=== PATIENT | female | born 1990 | race Hispanic/Latino ===

== ENCOUNTER 2020-09-27 07:51 | Inpatient (IN) | payer OTHER ==
[~2020-09-27] VITALS: Ht 152.4 cm; Wt 72.6 kg
[2020-09-27] VITALS (45 sets, daily range): BP systolic 86–122; BP diastolic 50–72
[2020-09-27] MEDS ORDERED: PRENTAB9 PO (08:07)
[2020-09-27] MEDS ORDERED: LR 1,000 ML IV SCH (08:33)
[2020-09-27] MEDS ORDERED: LACTATED RINGER'S 1000 ML IV STA (08:33)
--- NOTE | 2020-09-27 08:51 | HPEPDOC ---
Obstetrical History & Physical General Date of Admission 09/27/2020 History of Present Illness 29 yo at 40w3d with ARACELIS of 24 SEP 2020 presents to L&D with complaints of leaking of clear fluid since 0600 this morning with painful contractions. She denies vaginal bleeding and reports positive movement. Chief Complaint: LOF, term Information Provided By: Patient Age: 29 : 1 Term: 0 Pre-term: 0 Abortions: 0 Livin Care Care: Good Care Dating Final EDC: Sep 24, 2020 Final EDC for Daily Update: Sep 24, 2020 Final EDC by: 2nd trimester (US) LMP: Dec 19, 2019 Weeks + Days: 14 (+4) Estimated Date of Confinement: Sep 24, 2020 EGA at Admission: 40 (+3) Antepartum Course Height (inches): 60 Pre- weight (lbs.): 126 Admission Weight (lbs.): 157 Change in Weight (lbs.): 31 Past Medical History Past Obstetrical History : Past Obstetrical History: Primgravida G[employer] History: No pertinent history Past Medical History Medical History Denies Surgical History: Appendectomy Family History Significant Family History: No pertinent family hx Social History Marital Status: Family situation: Spouse/partner home Psychosocial History: No pertinent psych hx * Smoker: non-smoker Alcohol: Denies Drugs: denies Abuse Violence Screening Have you been hit/kicked/slapp: No Have you been sexually assault: No Imunizations Tdap status: current Allergies Coded Allergies: No Known Drug Allergies (Verified Allergy, Unknown, 09/27/20) Medications Scheduled No.137/Iron/Folic Acd ( Vitamin Tablet) 1 Each Tablet, 1 TAB PO DAILY Physical Examination Physical Examination GENERAL: Alert and oriented times three. BREAST: . ABDOMEN: Gravid and non-tender to touch. FETUS: Is vertex (VTX) by sterile vaginal examination (SVE), and fetus is vertex (VTX) by Awais. HEART RATE: Regular rate and rhythm. LUNGS: Clear to auscultation (CTA). EXTREMITIES: No edema. No clonus. Deep tendon reflexes (DTRs) + 2. Vital Signs/I&O Vital Signs Date Time Temp Pulse Resp B/P (MAP) Pulse Ox O2 Delivery O2 Flow Rate FiO2 09/27/20 08:17 99.3 91 20 111/65 (80) Sterile speculum exam with clear fluid pooling in the vaginal vault and leaking from the cervix with Valsalva. Laboratory Data Urine Culture: No Growth Pertinent Laboratoy Data Blood Type: O+ RBC Antibody Screen: Negative HIV: Negative Hepatitis B: Negative Rapid Plasma Reagin: Nonreactive Rubella: Immune Varicella: Immune Chlamydia/Gonorrhea: Negative Group B Streptococcus: Negative Cystic Fibrosis: Negative Glucose Tolerance Test: 134 Anatomy Ultrasound Ultrasound Date: Jun 19, 2020 Placenta Location: Anterior Normal Anatomy: Yes Placenta Previa: No Estimated Weight (grams): 1295 Steroid Therapy Steroid Therapy: No Vaginal Examination Dilation: 3 cm Effacement: 80% Station: -2 Cervical Consistency: Soft Cervical Position: Middle Presentation: Cephalic presentation Position: Vertex (occiput) Assessment Heart Rate (FHR): 140 Variability: Moderate Accelerations: Present Decelerations: None Tocometer Contractions: Yes Frequency: every 2-5 min. Multi-drug resistant Organism: No history of MDRO Assessment/Plan Assessment 29 yo at 40w3d with ARACELIS of 24 SEP 2020 presents to L&D with complaints of leaking of clear fluid since 0600 this morning with painful contractions. She denies vaginal bleeding and reports positive movement. Plan Admit and orient. Website Admin and consent. Diet: clear liquids. Group B Streptococcus (GBS) negative. Labs and intravenous (IV) per unit protocol. Counseled on Pitocin and induction of labor (IOL). Lactated Ringers (LR): Bolus 1000 mL, then at 125 mL/hr. Anticipate normal spontaneous delivery (). C-S as appropriate. Labor and Delivery Counseling Discussed pain management options, risks of labor, risks of hemorrhage and indications for section. HARRY VALENCIA CNM Sep 27, 2020 08:51
[2020-09-27 09:40] LABS: HEMATOCRIT 39.8 % (36.0-47.0); MEAN CORPUSCULAR HEMOGLOBIN 28.4 pg (27.0-33.0); MEAN CORPUSCULAR HGB CONC 32.7 g/dl (32.0-36.5); MEAN CORPUSCULAR VOLUME 86.9 fl (80.0-96.0); PLATELET COUNT, AUTOMATED 209 10^3/uL (150-450); RED BLOOD COUNT 4.58 10^6/uL (4.00-5.40)
[2020-09-27] MEDS ORDERED: PROMETHAZINE INJ 25 MG/ML VIAL (J2550) IV ONE (12:00)
[2020-09-27] MEDS ORDERED: BUTORPHANOL 2 MG/ML INJ (J0595) IV ONE (12:00)
--- NOTE | 2020-09-27 12:00 | IPNPDOC ---
Obstetrical Progress Note Date of Service Sep 27, 2020 Subjective 29 yo at 40w3d with ARACELIS of 24 SEP 2020 admitted for labor. She is breathing through her contractions. She desires for IV pain medication for pain. She has supportive family at the bedside. Objective Vital Signs Date Time Temp Pulse Resp B/P (MAP) Pulse Ox O2 Delivery O2 Flow Rate FiO2 09/27/20 11:10 98.6 89 22 112/69 (83) Assessment Heart Rate (FHR): 145 Variability: Minimal Accelerations: Present Decelerations: None Tocometer Contractions: Yes Frequency: other (every 3-4 minutes) Sterile Vaginal Examination Dilation: 3 cm Effacement (%): 80% Station: -2 Cervical Consistency: Soft Cervical Position: Middle Postion/Presentation: Cephalic presentation Assessment and Plan Age: 29 : 1 Term: 0 Pre-term: 0 Abortions: 0 Livin EGA at Admission: 40 (+3) Weeks & Days 40w3d Status: Reassuring Group B Streptococcus: Negative Anticipate: Vaginal Delivery Additional Comments Will start pitocin for augmentation and administer Stadol and Phenergan for pain. HARRY VALENCIA CNM Sep 27, 2020 11:55
[2020-09-27] MEDS ORDERED: OXYTOCIN DRIP 30 UNITS in IV 1 EA IV SCH (12:30)
[2020-09-27] MEDS ORDERED: LACTATED RINGER'S 1000 ML IV ONE (16:30)
[2020-09-27] MEDS ORDERED: FENTANYL 2MCG/ML ROPIVACAINE 0.2% IN 0.9% NACL 100ML IVBAG As Ordered ONE (16:33)
--- NOTE | 2020-09-27 16:33 | IPNPDOC ---
Text Note Date of Service The patient was seen on 09/27/20. NOTE Item Value Date Time White Blood Count 13.0 10^3/uL H 09/27/20 0931 Red Blood Count 4.58 10^6/uL 09/27/20 0931 Hemoglobin 13.0 g/dl 09/27/20 0931 Hematocrit 39.8 % 09/27/20 0931 Mean Corpuscular Volume 86.9 fl 09/27/20 0931 Mean Corpuscular Hemoglobin 28.4 pg 09/27/20 0931 Mean Corpuscular Hemoglobin Concent 32.7 g/dl 09/27/20 0931 Red Cell Distribution Width 14.9 % H 09/27/20 0931 Platelet Count 209 10^3/uL 09/27/20 0931 Nucleated Red Blood Cells % (auto) 0.0 % 09/27/20 0931 09/27/20 1660 patient admitted at 40.3 srom clear was 4 cm moderate contractio ns on Pitocin now 4 hours later 5 cm 100% effaced -1 station . category 1 strip offered epidural will decide safe to proceed reviewed from obstetric side sleep wake up fully to have baby iv Meds did not help progress to date VS,Fishbone, I+O VS, Fishbone, I+O Laboratory Tests 09/27/20 09:31 Vital Signs Date Time Temp Pulse Resp B/P (MAP) Pulse Ox O2 Delivery O2 Flow Rate FiO2 09/27/20 16:01 93 111/55 (73) 09/27/20 15:26 98.3 18 09/27/20 12:24 Room Air Natalio Randolph MD Sep 27, 2020 16:33
[2020-09-27] MEDS ORDERED: REFRIGERATOR IV KEYS XX PRN (17:30)
[2020-09-27] MEDS ORDERED: EPIDURAL COMMENT XX SCH (17:30)
[2020-09-27] MEDS ORDERED: FENTANYL/ROPIVACAINE/NACL BAG 100 ML EPIDURAL SCH (17:30)
[2020-09-27] MEDS ORDERED: NALOXONE INJ 0.4MG/1ML VIAL (J2310 PER 1MG) IV PRN (17:30)
[2020-09-27] MEDS ORDERED: LACTATED RINGER'S 1000 ML IV PRN (17:30)
[2020-09-27] MEDS ORDERED: EPIDURAL/PCA KEYS XX PRN (17:30)
[2020-09-27] MEDS ORDERED: ONDANSETRON 4MG/2ML VIAL IV PRN (17:30)
[2020-09-27] MEDS ORDERED: diphenhydrAMINE 50MG/ML VIAL (J1200) IV PRN (17:30)
[2020-09-27] MEDS: ePHEDrine SULFATE 25 MG/5 ML(5MG/ML) SYRINGE IV PRN ×3 (17:46→18:00)
[2020-09-27] MEDS ORDERED: ACETAMINOPHEN 500 MG TAB PO ONE (21:30)
[2020-09-28] VITALS (33 sets, daily range): BP systolic 95–143; BP diastolic 52–84
[2020-09-28 00:57] LABS: CORD GAS ABE V -3.2; CORD GAS O2 SAT V 71.8 %; CORD GAS PCO2 V 35.2 mmHg; CORD GAS PH V 7.393 UNITS; CORD GAS SBC V 21.2 MEQ/L; CORD GAS TCO2 V 22.1 MEQ/L
[2020-09-28 01:00] LABS: CORD GAS ABE A -6.9; CORD GAS HCO3 A 20.7 MEQ/L; CORD GAS O2 SAT A 40.4 %; CORD GAS PCO2 A 49.3 mmHg; CORD GAS PH A 7.241 UNITS; CORD GAS PO2 A 21.5 mmHg; CORD GAS SBC A 17.7 MEQ/L; CORD GAS TCO2 A 22.2 MEQ/L
[2020-09-28] MEDS ORDERED: OXYTOCIN DRIP 30 UNITS in IV 1 EA IV SCH (01:20)
[2020-09-28] MEDS ORDERED: LR 1,000 ML IV SCH (01:20)
[2020-09-28] MEDS ORDERED: BENZOCAINE 20% HEMORRHOIDAL OINTMENT 28GM TUBE TOP PRN (01:30)
[2020-09-28] MEDS ORDERED: ACETAMINOPHEN 500 MG TAB PO PRN (01:30)
[2020-09-28] MEDS ORDERED: MOM 30ML SUSPENSION UDC PO PRN (01:30)
[2020-09-28] MEDS ORDERED: METHYLERGONOVINE MALEATE 0.2 MG/ML VIAL (J2210) IM ONE (01:30)
[2020-09-28] MEDS ORDERED: METHYLERGONOVINE MALEATE 0.2 MG TAB PO PRN (01:30)
[2020-09-28] MEDS ORDERED: LOPERAMIDE 2 MG CAPLET PO ONE (01:30)
[2020-09-28] MEDS ORDERED: MEASLES,MUMPS,RUBELLA VACCINE INJ (MMR-II) (90707) SC SCH (01:30)
[2020-09-28] MEDS ORDERED: ACETAMINOPHEN TAB 650MG DOSE (2X325MG) PO PRN (01:30)
[2020-09-28] MEDS ORDERED: RHOGAM 300 MCG (1500 IU) INJ (J2790) IM SCH (01:30)
[2020-09-28] MEDS ORDERED: DOCUSATE SODIUM 100MG CAPSULE PO PRN (01:30)
[2020-09-28] MEDS ORDERED: IBUPROFEN 600MG TAB PO PRN (01:30)
[2020-09-28] MEDS ORDERED: CARBOPROST TROMETHAMINE 250 MCG/ML AMP IM ONE (01:30)
[2020-09-28] MEDS ORDERED: ANUSOL HC CREAM 30GM TOP PRN (01:30)
[2020-09-28] MEDS ORDERED: PIPERACILLIN/TAZOBACTAM SOD 3.375 GM in D5W MINI-BAG PLUS 50 ML IV ONE (02:00)
[2020-09-28 03:01] LABS: HEMATOCRIT 33.4 % (36.0-47.0); MEAN CORPUSCULAR HEMOGLOBIN 28.9 pg (27.0-33.0); MEAN CORPUSCULAR HGB CONC 32.9 g/dl (32.0-36.5); MEAN CORPUSCULAR VOLUME 87.9 fl (80.0-96.0); PLATELET COUNT, AUTOMATED 199 10^3/uL (150-450); WHITE BLOOD COUNT 19.2 10^3/uL (4.0-10.0)
[2020-09-28] MEDS ORDERED: OXYTOCIN INJ 10 UNITS/ML VIAL (J2590) IM ONE (03:15)
[2020-09-28 06:11] LABS: HEMOGLOBIN 9.5 g/dl (12.0-15.5); MEAN CORPUSCULAR HEMOGLOBIN 28.9 pg (27.0-33.0); MEAN CORPUSCULAR HGB CONC 32.8 g/dl (32.0-36.5); MEAN CORPUSCULAR VOLUME 88.1 fl (80.0-96.0); PLATELET COUNT, AUTOMATED 186 10^3/uL (150-450); RED BLOOD COUNT 3.29 10^6/uL (4.00-5.40); WHITE BLOOD COUNT 19.6 10^3/uL (4.0-10.0)
--- NOTE | 2020-09-28 06:26 | IPNPDOC ---
Text Note Date of Service The patient was seen on 09/28/20. NOTE BAKRI BALLOON REMOVED NO BLEEDING UTERUS 2 BELOW FUNDAL PRESSURE SCANT OLD B LOOD STABLE HEMODYNAMICALLY VS,Fishbone, I+O VS, Fishbone, I+O Laboratory Tests 09/27/20 09:31 09/28/20 02:53 09/28/20 06:02 Vital Signs Date Time Temp Pulse Resp B/P (MAP) Pulse Ox O2 Delivery O2 Flow Rate FiO2 09/28/20 06:05 98 16 107/56 (73) 09/28/20 04:35 99.7 09/28/20 01:36 99 09/27/20 12:24 Room Air I&O- Last 24 Hours up to 6 AM 09/28/20 06:00 Intake Total 6994 ml Output Total 6200 ml Balance 794 ml Natalio Randolph MD Sep 28, 2020 06:26
--- NOTE | 2020-09-28 10:17 | DN ---
DELIVERY NOTE DATE OF DELIVERY: 09/28/2020 TIME OF : GENDER: Male APGARS: 8 and 9 LACERATIONS: 1st degree ANESTHESIA: epidural ESTIMATED BLOOD LOSS: 1500 mL COUNTS: DESCRIPTION OF DELIVERY: This lady is a 29-year-old 1, para 0 admitted at 40 and 3 weeks gestation with contractions, spontaneous rupture of membranes, GBS negative. She had augmentation with Pitocin, had IV medication for pain management and an epidural. She had a very atonic type uterus, eventually got fully dilated and had a spontaneous vaginal delivery, live male infant, 8 pounds 12 ounces, 3980 gm, Apgars 8 and 9 at 1 and 5 minutes respectively. Arterial pH 7.24, base excess -6.9, venous pH 7.39, base excess -3.2. Placenta delivered spontaneously thereafter, three vessels of cord, membranes and tissues intact. Noted to have true knot in the cord. She had a significant cervical prolapse of the anterior lip as she had been pushing on that anterior lip. Uterus did not contract well under Pitocin. Manual exploration of the uterus showed a very atonic uterus, multiple clots which were removed and swept out. Vigorous massage was given. Pitocin was run 999 per hour. She continued to bleed. We gave her Hemabate, Cytotec 1000 mg per rectum, Methergine 0.2 I.M. and continued the Pitocin. Eventually a Bakri balloon was placed with 150 mL of saline. The uterus eventually contracted down over the balloon. Cervical prolapse was noted to be prominent. She had a small 1st degree tear oversewn with 3-0 on J339. Feldman catheter in the bladder draining some blood-tinged urine from manipulation. The Bakri was holding. The total blood loss weighed out approximately 1500 mL. The patient hemodynamically was stable throughout. She was given a dose of Zosyn x1, had one episode of elevated temperature prior to delivery. The patient at the present time is stable. Uterus is contracted down over the balloon and minimal bleeding from the vagina and cervical anterior lip is retracting. MTDD
[2020-09-28] MEDS: PRENATAL VITAMINS CHEWABLE TABLET PO SCH (12:35)
[2020-09-28 18:02] LABS: HEMATOCRIT 27.6 % (36.0-47.0); HEMOGLOBIN 9.2 g/dl (12.0-15.5); MEAN CORPUSCULAR HEMOGLOBIN 29.4 pg (27.0-33.0); MEAN CORPUSCULAR HGB CONC 33.3 g/dl (32.0-36.5); MEAN CORPUSCULAR VOLUME 88.2 fl (80.0-96.0); PLATELET COUNT, AUTOMATED 197 10^3/uL (150-450); RED BLOOD COUNT 3.13 10^6/uL (4.00-5.40); WHITE BLOOD COUNT 18.8 10^3/uL (4.0-10.0)
[2020-09-29 02:00] VITALS: BP 98/52
[2020-09-29 05:43] VITALS: BP 92/52
--- NOTE | 2020-09-29 07:07 | IPNPDOC ---
Progress Note Date of Service: Sep 29, 2020 Day#: 1 Progress Note SUBJECT: Ms. Fatima is a 29yo now PPD1 s/p and 1MLL at term c/b PPH resulting in EBL 1500cc. She recieved hemabate, methergine (series), cytotec, pitocin, and a bakri balloon that was removed yesterday morning. She recieved 2g ancef prophylaxis. She reports bleeding that is less than a normal period and denied si/sx of anemia. She has been ambulating, voiding spontaneously without issue and tolerating regular diet. Breast feeding without issue. Patient is ambulating well. [Reports some cramping with . Denies any pain. Voiding and passing flatus without difficulty]. OBJECTIVE: VITAL SIGNS: Within normal limits, afebrile. Alert and oriented times three. Breath no increased WOB Heart rate: non-tachy Abdomen: Fundus firm at U-2. Soft, NTTP. [Minimal] lochia per pt ASSESSMENT: Ms. Fatima is a 29yo now PPD1 s/p and 1MLL at term c/b PPH resulting in EBL 1500cc. She recieved hemabate, methergine (series), cytotec, pitocin, and a bakri balloon that was removed yesterday morning. She recieved 2g ancef prophylaxis. Vitals within normal limits, non-tachycardic, afebrile, hemodynamically stable with no evidence of infection. She does not have any si/sx of anemia. She has had serial CBCs with stable H/Hs. PLAN: 1. Discharge to home likely tomorrow 2. continue serial CBC for total of 4 per prior plan 2. Tylenol and Motrin for pain. 3. Encourage breast feeding and ambulation. 4. patient reports already has minipill at home for contraception 5. Routine PP visit in 6 weeks in clinic. 6. Discussed return precautions at length. VS, I&O, 24H, Fishbone Vital Signs/I&O Vital Signs Date Time Temp Pulse Resp B/P (MAP) Pulse Ox O2 Delivery O2 Flow Rate FiO2 09/29/20 05:43 97.7 97 18 92/52 (65) 97 Room Air Automatic Cuff (NIBP) I&O- Last 24 Hours up to 6 AM 09/29/20 06:00 Intake Total 240 ml Output Total 1950 ml Balance -1710 ml Laboratory Data 24H LABS Laboratory Tests 2 09/28/20 17:45: Nucleated Red Blood Cells % (auto) 0.0 CBC/BMP Laboratory Tests 09/28/20 17:45 JUANCARLOS CHAPMAN DO Sep 29, 2020 07:07
[2020-09-29 07:24] LABS: HEMATOCRIT 27.3 % (36.0-47.0); HEMOGLOBIN 8.9 g/dl (12.0-15.5); MEAN CORPUSCULAR HEMOGLOBIN 28.9 pg (27.0-33.0); MEAN CORPUSCULAR HGB CONC 32.6 g/dl (32.0-36.5); MEAN CORPUSCULAR VOLUME 88.6 fl (80.0-96.0); PLATELET COUNT, AUTOMATED 185 10^3/uL (150-450); RED BLOOD COUNT 3.08 10^6/uL (4.00-5.40); WHITE BLOOD COUNT 16.5 10^3/uL (4.0-10.0)
[2020-09-29] MEDS: PRENATAL VITAMINS CHEWABLE TABLET PO SCH (08:15)
[2020-09-29 10:00] VITALS: BP 119/72
[2020-09-29 14:00] VITALS: BP 109/66
[2020-09-29 18:00] VITALS: BP 100/65
[2020-09-29 19:01] LABS: HEMATOCRIT 29.6 % (36.0-47.0); HEMOGLOBIN 9.7 g/dl (12.0-15.5); MEAN CORPUSCULAR HEMOGLOBIN 29.2 pg (27.0-33.0); MEAN CORPUSCULAR HGB CONC 32.8 g/dl (32.0-36.5); MEAN CORPUSCULAR VOLUME 89.2 fl (80.0-96.0); PLATELET COUNT, AUTOMATED 236 10^3/uL (150-450); RED BLOOD COUNT 3.32 10^6/uL (4.00-5.40); WHITE BLOOD COUNT 15.3 10^3/uL (4.0-10.0)
[2020-09-29 22:00] VITALS: BP 110/67
[2020-09-30 02:00] VITALS: BP 107/69
[2020-09-30 06:00] VITALS: BP 102/64
[2020-09-30] MEDS ORDERED: PRENCHW PO (07:13)
[2020-09-30] MEDS ORDERED: IBUP-1022 PO (07:13)
--- NOTE | 2020-09-30 08:16 | DSES ---
DISCHARGE SUMMARY DATE OF ADMISSION: 09/27/2020 DATE OF DISCHARGE: 09/30/2020 This lady is a 23-year-old 1, para 1, admitted with contractions at 40 and 3 weeks of gestation. Had delivered a live male , 8 pounds 12 ounces, 2980 grams, scores of 8 and 9 in one and five minutes respectively. There was a true knot in the cord in the midsection. She had a significant cervical prolapse. Arterial pH 7.24, base excess -6.9, venous pH 7.39, base excess 3.2. She had a first degree tear which was repaired in the usual fashion. She had a significant hemorrhage due to atonic uterus of 1600 mL of blood. She received Pitocin, Hemabate, methargen, Cytotec and had a Bakri balloon. Her admitting hemoglobin was 11.0, hematocrit 33.4 and platelets 199. Discharge hemoglobin 9.7, hematocrit 29.6, platelets 236. No blood was given. On her second day we discussed phlebitis, cystitis, mastitis, endometritis, cellulitis, diet, exercise, pain management and perineal care. The rest of the examination unremarkable. Normocephalic, atraumatic. Neck: Full range of motion. Pupils are equal and reactive to light and accommodation. Distal pulses symmetric. No evidence of deep venous thrombosis (DVT), pulmonary embolism (PE) or superficial phlebitis. Chest is clear bilaterally to bases. No wheezes or rhonchi. No costovertebral angle (CVA) tenderness. Abdomen is soft. Four quadrant bowel sounds are noted. Uterus is 2 below. Lochia is moderate. Perineum is healing. Blood pressure 102/64, respirations 16, pulse 72, temperature 98.4. She has no urgency, frequency, nausea, vomiting, diarrhea or constipation. In summary, term gestation, delivered a live male infant with a significant hemorrhage due to atonic uterus. Medications will be picked up at [place]. She will have a six week [place] [facility] check. All questions are answered, 20 minute discussion. Edited: rachel 10/01/2020 1443 MTDD
[2020-09-30] MEDS: PRENATAL VITAMINS CHEWABLE TABLET PO SCH (08:55)
--- NOTE | 2020-09-30 09:53 | IPN ---
PROGRESS NOTE DATE: 09/28/2020 This patient's requested circumcision of their male infant. After discussing risks and benefits of circumcision, the medical and nonmedical indications, the penile block and aftercare, expressed understanding of penile block, aftercare and bleeding. Signed a consent form. All questions were answered. A 20 minute discussion. We await clearance by the internal audit consultant.
== END 2020-09-30 11:30 | disposition home or self-care (01) | DRG 806 ==
LOC: M LDO 07:51 → M LDI 08:42 → M OBS 09-28 09:10
PROVIDERS: ADMIT Registered Nurse Maternal Newborn; ATTEND Obstetrics & Gynecology
PROC: 10E0XZZ Delivery of Products of Conception, External Approach (ICD-10-PCS; principal; 2020-09-28)
PROC: 0HQ9XZZ Repair Perineum Skin, External Approach (ICD-10-PCS; 2020-09-28)
DX: O48.0 Post-term pregnancy (principal); Z37.0 Single live birth; O72.0 Third-stage hemorrhage; Z3A.40 40 weeks gestation of pregnancy; O69.2XX0 Labor and delivery complicated by other cord entanglement, with compression, not applicable or unspecified; O65.5 Obstructed labor due to abnormality of maternal pelvic organs; O62.2 Other uterine inertia; O70.0 First degree perineal laceration during delivery

== ENCOUNTER 2022-12-18 07:33 | Day surgery (SDC) | payer OTHER ==
[~2022-12-18] VITALS: Ht 152.4 cm; Wt 59.3 kg
[~2022-12-18 07:33] MED LIST: IBUP-1022 PO; PRENCHW PO; PRENTAB9 PO
[2022-12-18] MEDS ORDERED: LIDOCAINE 1% SDV 5ML VIAL SC PRN (08:00)
[2022-12-18] MEDS ORDERED: LR 1,000 ML IV SCH ×2 (08:00→10:45)
[2022-12-18] MEDS ORDERED: SUGAMMADEX SODIUM 500 MG/5 ML VIAL (BRIDION) As Ordered ONE (08:08)
[2022-12-18] MEDS ORDERED: fentaNYL 100 MCG/2 ML INJECTION As Ordered ONE (08:08)
[2022-12-18] MEDS ORDERED: LIDOCAINE 2% 100MG/5ML SDV (FOR ANES.) As Ordered ONE (08:08)
[2022-12-18] MEDS ORDERED: propofoL 200 MG/20 ML VIAL As Ordered ONE (08:08)
[2022-12-18] MEDS ORDERED: KETOROLAC 60MG 2ML VIAL As Ordered ONE (08:08)
[2022-12-18] MEDS ORDERED: ROCURONIUM BROMIDE 50MG/5ML VIAL As Ordered ONE (08:08)
[2022-12-18] MEDS ORDERED: ONDANSETRON 4MG 2ML VIAL As Ordered ONE (08:08)
[2022-12-18] MEDS ORDERED: MIDAZOLAM INJ 2MG/2ML VIAL As Ordered ONE (08:08)
[2022-12-18 08:09] LABS: HEMATOCRIT 43.4 % (36.0-47.0); HEMOGLOBIN 14.2 g/dl (12.0-15.5); MEAN CORPUSCULAR HEMOGLOBIN 30.4 pg (27.0-33.0); MEAN CORPUSCULAR HGB CONC 32.7 g/dl (32.0-36.5); MEAN CORPUSCULAR VOLUME 92.9 fl (80.0-96.0); PLATELET COUNT, AUTOMATED 277 10^3/uL (150-450); RED BLOOD COUNT 4.67 10^6/uL (4.00-5.40); WHITE BLOOD COUNT 6.9 10^3/uL (4.0-10.0)
[2022-12-18] MEDS ORDERED: SCOPOLAMINE 1MG TRANSDERMAL PATCH TOP SCH (09:00)
[2022-12-18] MEDS ORDERED: BUPIVACAINE HCL 0.25% 30ML VIAL As Ordered ONE (09:46)
[2022-12-18] MEDS ORDERED: ACETAMINOPHEN 1000MG 100ML IV BAG As Ordered ONE (10:12)
[2022-12-18] MEDS ORDERED: ONDANSETRON 4MG 2ML VIAL IV PRN (10:45)
[2022-12-18] MEDS ORDERED: MORPHINE 2 MG/ML 1ML VIAL IV PRN (10:45)
[2022-12-18] MEDS ORDERED: fentaNYL 100 MCG/2 ML INJECTION IV PRN (10:45)
[2022-12-18] MEDS ORDERED: oxyCODONE 5MG TAB PO PRN (10:45)
[2022-12-18 11:20] VITALS: BP 116/80
== END 2022-12-18 11:45 | disposition home or self-care (01) ==
LOC: M SDC 07:33
PROVIDERS: ATTEND Obstetrics & Gynecology
DX: Z30.2 Encounter for sterilization (principal); Z30.46 Encounter for surveillance of implantable subdermal contraceptive
CPT/HCPCS: 11982; 36415; 58661; 81025; 85027; 88300; 88302; J0131; J1100; J1885; J2250; J2405; J3010; S0020